=== PATIENT | male | born 1995 | race Caucasian/White ===

== ENCOUNTER 2017-01-23 16:00 | Inpatient (IN) | payer BC ==
--- NOTE | ~2017-01-23 | PN ---
Unit #: [id number] #: [id number] Patient: ABHISHEK HAMILTON [id number] [facility] [address] [place] [address] [id number] MR#: [id number] NAME: ABHISHEK HAMILTON ROOM: P212 Age: 21 Sex: M Admission Date: 01/23/2017 : 1995 Attending Physician: Dwayne Petty M.D. Admitting Physician: Dwayne Petty M.D. Primary Care Physician: Primary Care Physician Nataly MENDEZ PROGRESS NOTES DATE 01/25/2017 DISCUSSION Abhishek is a 21-year-old male seen on 01/25/2017. The patient interviewed, chart reviewed. Obtained information from nursing staff. The patient was compliant and cooperative, able to maintain safe behavior, tolerating medication fairly well. Vital signs stable 97.6, 67, 109/60. Complete review of systems unremarkable. MENTAL STATUS EXAMINATION General appearance, the patient dressed casually. Attention span and concentration fair. Oriented to time, place and person. Mood and affect labile. Speech monotone. Thought process concrete. The patient denied any thoughts of harming self or others. Recent and remote memory poor. Insight and judgement poor. DIAGNOSES Mood disorder NOS ASSESSMENT/PLAN Advise to continue with current medication and therapeutic protocol. If needed consider further adjustment of medication. Dictated by... Taz Martinez/lindsay TD: 01/26/2017 03:27 JOB #: [id number] ANDREA PROGRESS NOTES Page 1 of 1 X Dwayne Petty MD X PROGRESS NOTE
--- NOTE | ~2017-01-23 | HP ---
Unit #: [id number] #: [id number] Patient: ABHISHEK HAMILTON [id number] [facility] [address] [place] [address] [id number] MR#: [id number] NAME: ABHISHEK HAMILTON ROOM: P212 Age: 21 Sex: M Admission Date: 01/23/2017 : 1995 Attending Physician: Dwayne Petty M.D. Admitting Physician: Dwayne Petty M.D. Primary Care Physician: Primary Care Physician No HISTORY AND PHYSICAL HISTORY OF PRESENT ILLNESS Abhishek is a 21-year-old male admitted on 01/23/[address] [place] [address] for suicidal ideation and abuse of Adderall and cocaine. PAST MEDICAL HISTORY Type 1 diabetes diagnosed at 15 years old. PAST SURGICAL HISTORY Appendectomy. ALLERGIES No known drug allergies. SOCIAL HISTORY Smokes 1 pack of cigarettes daily. Occasional alcohol use and frequent use of marijuana, cocaine and prescription pills. He is currently single and living with his father. FAMILY HISTORY Noncontributory. REVIEW OF SYSTEMS CONSTITUTIONAL: No fever or chills. HEENT: Denies any sore throat, ear pain or runny nose. CARDIOVASCULAR: Denies chest pain, irregular heart rhythm or palpitations. CHEST: Denies shortness of breath or cough. No hemoptysis. GASTROINTESTINAL: Denies nausea, vomiting, diarrhea or chronic constipation. ENDOCRINE: Denies history of increased thirst or urination. No recent significant weight loss or gain. GENITOURINARY: Denies dysuria, frequency, or hematuria. SKIN: Denies any rashes. HEMATOLOGIC: Denies history of increased bleeding or bruising. MUSCULOSKELETAL: Denies any hot, swollen joints. No generalized muscle pain. NEUROLOGIC: Denies problems with vision or speech. No frequent, severe headaches. No numbness, tingling or weakness in any extremities. Denies loss of bladder or bowel control. CURRENT MEDICATIONS 1. Levemir. 2. Zoloft. 3. NovoLog. Unit #: [id number] #: [id number] Patient: ABHISHEK HAMILTON PHYSICAL EXAMINATION GENERAL: Alert, oriented, in no acute distress. VITAL SIGNS: Blood pressure 119/83, heart rate 69, respirations 18, temperature 97.7. HEIGHT: 6 feet 3. WEIGHT: 162 pounds. SKIN: Warm and dry without rash or lesion. HEENT: Normocephalic. TMs not viewed. Oral and nasal passages clear. Conjunctivae clear. PERRLA. EOMs intact. NECK: Supple without lymphadenopathy or thyromegaly. HEART: Regular rate and rhythm without murmur. LUNGS: Clear. ABDOMEN: Soft, nontender, without masses or hepatosplenomegaly. : Not done. EXTREMITIES: No evidence of cyanosis, clubbing or edema. Moves all without focal deficit. NEUROLOGICAL: Grossly within normal limits. Cranial Nerves: II: Visual bowden are intact. III, IV AND : Extraocular movements are intact. Pupils are equal, round and reactive to light. V: Facial sensation is grossly normal. VII: Facial movements and expression are normal. VIII: Auditory acuity grossly intact. IX, X: Uvula is midline. Phonation is normal. XI: Patient shrugs shoulders and turns head normally. XII: Tongue protrudes in the midline. Sensory and Motor Function: Sensory and motor sensation is grossly normal. Motor: moves all extremities well. Coordination: Gait is normal. Deep Tendon Reflexes: Intact. IMPRESSION 1. Psychiatric admission. 2. Type 1 diabetes. RECOMMENDATIONS PSYCHIATRIC: Per psychiatrist. MEDICAL: No contraindications to participate in facility's activities. MEDICAL PROGNOSIS Good. MEDICAL CONDITION Stable. Dictated by..Leyla Cates/louie TD: 01/24/2017 16:51 JOB #: [id number] Unit #: [id number] #: [id number] Patient: ABHISHEK HAMILTON HISTORY AND PHYSICAL Page 1 of 1 X ANA YOO APRN X HISTORY AND PHYSICAL
--- NOTE | ~2017-01-23 | CO ---
Unit #: [id number] #: [id number] Patient: ABHISHEK HAMILTON [id number] [place] [address] [id number] I MR#: [id number] NAME: ABHISHEK HAMILTON ROOM: [facility] Age: 21 Sex: M Admission Date: 01/23/2017 : 1995 Attending Physician: Dwayne Petty M.D. Primary Care Physician: Primary Care Physician No Consultation Date: 01/24/2017 CONSULTATION REPORT HISTORY OF PRESENT ILLNESS Abhishek reports that he is diagnosed with type 1 diabetes when he was 15 years old. Since he has been here, he has been taking his scheduled Toujeo, 4 units of Levemir every morning and 10 units of NovoLog with each meal. His blood sugar this morning was 406, this afternoon was 455. 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 Adan and has an appointment in a few weeks with him. He also has complaints of sutures in his left thumb after he cut himself with a stick and sutures were placed on 01/20/2017. He has no other complaints. PHYSICAL EXAMINATION CARDIAC: Regular rate and rhythm. No murmurs, gallops, or rubs. RESPIRATORY: Clear to auscultation bilaterally. SKIN: Please see photo of sutures in chart. ASSESSMENT AND PLAN 1. Left thumb sutures due to his type 1 diabetes. We will aid approximately 10 days before considering removal of the sutures. They are in a sensitive location that looks like it would open very easily without appropriate length of time. He was instructed to keep the area clean and dry with soap and water. No need for antibiotics at this time. There are no indications of infection. 2. Type 1 diabetes. We will continue with his current regimen of 24 units Levemir in the morning and 10 units of NovoLog with meals and we will add NovoLog 1 unit for every 50 units of blood sugars greater than 200. Dictated by... Lala Sierra A.P.R.N. for Taz Akbar/gil TD: 01/25/2017 01:32 JOB #: [id number] Unit #: [id number] #: [id number] Patient: ABHISHEK HAMILTON CONSULTATION REPORT Page 1 of 1 X LALA YOO APRN CONSULTATION REPORT
--- NOTE | ~2017-01-23 | PA ---
Unit #: [id number] #: [id number] Patient: ABHISHEK SCHRADER [id number] [facility] [address] [place] [address] [id number] MR#: [id number] NAME: ABHISHEK SCHRADER ROOM: P212 Age: 21 Sex: M Admission Date: 01/23/2017 : 1995 Date of Assessment: Attending Physician: Dwayne Petty M.D. Admitting Physician: Dwayne Petty M.D. Primary Care Physician: Primary Care Physician No PSYCHIATRIC ASSESSMENT INFORMANTS The patient reliability, fair informant and chart reliability, good. CHIEF COMPLAINT Depression. HISTORY OF PRESENT ILLNESS Mr. Abhishek Schrader is a 21-year-old male, presented with depression with suicidal ideation. The patient has a history of previous treatment at [facility] with suicide attempt. The patient has a good support from father. The patient is currently unemployed. Reported having suicidal ideation with a plan to jump off the bridge or cut his wrist. The patient reported history of overdosing in the past. Reported mood fluctuation, decreased energy, feeling of hopelessness and worthlessness, suicidal ideation, poor sleep, multiple stressors, and loss of job. The patient also reported smoking marijuana in the last few weeks. The patient reported going on a binge of abusing Adderall about 2 weeks ago. The patient has an estranged feeling, guarded, paranoid, mood lability, and suicidal ideation. Needing inpatient admission at this time for psychiatric stabilization. PAST PSYCHIATRIC HISTORY Remarkable for history of previous suicide attempt and inpatient treatment at [facility]. FAMILY HISTORY AND SOCIAL HISTORY The patient has a good support system. No history of abuse. No legal charges. MEDICAL HISTORY Remarkable for history of diabetes and injury to his thumb. MEDICATION HISTORY None. ALLERGIES No known drug allergies. SUBSTANCE ABUSE HISTORY The patient reported tobacco use, age of onset 13; alcohol, age of onset 15; marijuana, age of onset 13; crack cocaine, age of onset 19; LSD, age of onset 20; opioid, age of onset 18; amphetamine, age of onset 19; benzodiazepine, age of onset 15; and synthetic drugs, age of onset 17. Unit #: [id number] #: [id number] Patient: ABHISHEK SCHRADER The patient reported longest period of sobriety 2 months. Last period of sobriety in 2016. The patient reported history of blackouts. History of withdrawal. No history of any IV drug use. No history of HIV or hepatitis. REVIEW OF SYSTEMS HEENT: Eyes, clear. Ears, nose, mouth, and throat; clear. CARDIOVASCULAR: Unremarkable. RESPIRATORY: Unremarkable. GI: Unremarkable. : Unremarkable. SKIN: Unremarkable. LYMPH NODE: Unremarkable. NEUROLOGIC: Unremarkable. ENDOCRINE: Unremarkable. HEMATOLOGIC: Unremarkable. ALLERGIC/IMMUNOLOGIC: Unremarkable. MUSCULOSKELETAL: Muscle strength and tone, no atrophy or abnormal movement. Gait normal. MENTAL STATUS EXAMINATION CONSTITUTIONAL: Measurement of vital signs; temperature 98.0, heart rate 62, respiratory rate 18, and blood pressure 89/49. Height 6 feet 3 inches. GENERAL APPEARANCE: The patient dressed casually. The patient did not show any facial deformity. MUSCULOSKELETAL: Please see above. PSYCHIATRIC EXAMINATION Description of speech; regular rate, normal volume, normal articulation, and coherent. Description of thought process, goal directed. Description of association, intact. Description of abnormal psychotic thinking; the patient denied any hallucinations or delusions. Mood lability, but depression and substance abuse. Description of the patient's judgment: Concerning everyday activity, poor. Social situation, poor. Concerning psychiatric condition, poor. Complete mental status examination; oriented in time, place, and person. Recent and remote memory, fair. Attention span and concentration, fair. Language, able to name object and repeat phrases. Fund of knowledge, aware of current event and passive vocabulary intact. Mood and affect, sad and dysphoric. Insight and judgment, fair to poor. ASSETS AND LIABILITIES Assets, the patient is articulate and able to take care of his ADL. Liability, history of substance abuse and depression. ADMITTING DIAGNOSES Psychiatric: Bipolar mood disorder, recurrent severe, depressed, F31.9; amphetamine use disorder, moderate, F15.20; and cannabis abuse, moderate, F12.20. Secondary diagnosis: Deferred. Medical diagnoses: History of diabetes and injury to his thumb. Stressors: Psychosocial stressors. PSYCHIATRIC PLAN AND TREATMENT GOAL AND DISCHARGE PLAN Unit #: [id number] #: [id number] Patient: ABHISHEK SCHRADER 1. Advised to admit the patient on the inpatient unit. Provide safe, supportive, and structured environment. 2. Ordered labs; CBC, CMP, UA, and UDS. 3. Advised to resume home medication. The patient is on NovoLog, Levemir, and Zoloft. If needed, consider further adjustment of medication. 4. The patient to attend all the programing, group therapy, and individual therapy. If possible, family therapy and chemical dependency group. TREATMENT GOAL To attain euthymic mood, gain insight into his problem, and learn coping skills. DISCHARGE PLAN Plan to stabilize the patient and consider followup in outpatient program. ESTIMATED LENGTH OF STAY 3 to 5 days. Dictated by... Dwayne Petty M.D. SHARRI/gil TD: 01/24/2017 19:00 JOB #: [id number] PSYCHIATRIC ASSESSMENT Page 1 of 1 X Dwayne Petty MD X PSYCHIATRIC ASSESSMENT
--- NOTE | ~2017-01-23 | DS ---
Unit #: [id number] #: [id number] Patient: JOSELINE HAMILTON [id number] [facility] [address] [place] [address] [id number] MR#: [id number] NAME: JOSELINE HAMILTON ROOM: [facility] Age: 21 Sex: M Admission Date: 01/23/2017 : 1995 Discharge Date: 01/26/2017 Attending Physician: Dwayne Petty M.D. Primary Care Physician: Primary Care Physician No DISCHARGE SUMMARY REASON FOR ADMISSION History of Adderall abuse, cocaine abuse, suicidal ideation. DIAGNOSTIC STUDIES Unremarkable. HOSPITAL COURSE The patient was admitted to inpatient unit on January 23 and discharge on January 26, 2017. The patient was treated on the inpatient unit with detox protocol, detox monitoring, medication management, psychoeducation, chemical dependency group. The patient has showed improved and subsequent discharged with the plan to follow up in outpatient program. DISCHARGE DIAGNOSES Ducor I Bipolar mood disorder, recurrent, depressed, F31.9. Amphetamine use disorder, moderate, F15.20. Cannabis abuse, moderate, F12.20. Ducor II Deferred. Ducor III History of diabetes. Injury to thumb. Ducor IV Psychosocial stressors. Ducor V INSTRUCTIONS TO PATIENT The patient is to follow up in outpatient clinic and social group worker. DISCHARGE MEDICATIONS 1. Desyrel 50 mg at bedtime for sleep 2. Zoloft 150 mg at bedtime for depression 3. Vistaril 25 mg three times a day for anxiety CONDITION AT DISCHARGE Patient is pleasant and cooperative, denied any psychotic symptoms or any suicidal ideation. PROGNOSIS Guarded. DIET AND ACTIVITY Diet and activity as tolerated. Unit #: [id number] #: [id number] Patient: JOSELINE HAMILTON Dictated by... Taz Martinez/jesi TD: 01/27/2017 11:39 JOB #: [id number] DISCHARGE SUMMARY Page 1 of 1 X Dwayne Petty MD X DISCHARGE SUMMARY
--- NOTE | ~2017-01-23 | PN ---
Unit #: [id number] #: [id number] Patient: ABHISHEK HAMILTON [id number] [facility] [address] [place] [address] [id number] MR#: [id number] NAME: ABHISHEK HAMILTON ROOM: [facility] Age: 21 Sex: M Admission Date: 01/23/2017 : 1995 Attending Physician: Dwayne Petty M.D. Admitting Physician: Dwayne Petty M.D. Primary Care Physician: Primary Care Physician Nataly VEGA NOTES DATE OF SERVICE: 01/24/2017 DISCUSSION Abhishek is a 21-year-old male, seen on 01/24/2017. The patient interviewed, chart reviewed, and obtained information from nursing staff. The patient continues to be sad, dysphoric, flat affect, adjusting fairly well to unit rules, compliant with medication. The patient's vital signs; temperature 98.0, heart rate 62, and blood pressure 89/49. REVIEW OF SYSTEMS Complete review of systems unremarkable. MENTAL STATUS EXAMINATION General appearance, the patient dressed casually. Attention span and concentration, fair. Oriented in place and person. Mood and affect, sad and dysphoric. Speech, monotone. Thought process, concrete. The patient denied any thoughts of harming self or others, but guarded. Recent and remote memory, poor. Insight and judgment, poor. DIAGNOSIS Bipolar mood disorder, recurrent, depressed. ASSESSMENT AND PLAN Advised to continue with current medication and therapeutic protocol. If needed, consider further adjustment of medication. The patient's blood glucose this morning was 226. Dictated by... Taz Martinez/gil TD: 01/24/2017 14:49 JOB #: [id number] Unit #: [id number] #: [id number] Patient: ABHISHEK HAMILTON PROGRESS NOTES Page 1 of 1 X Dwayne Petty MD PROGRESS NOTE
[2017-01-24 12:54] LABS: URINE APPEARANCE CLOUDY; URINE BILIRUBIN NEG (NEG); URINE BLOOD 3+ (NEG); URINE COLOR YELLOW; URINE GLUCOSE 300 MG/DL (NORM); URINE KETONE NEG (NEG); URINE LEUKOCYTE ESTERASE NEG (NEG); URINE NITRATE NEG (NEG); URINE PROTEIN NEG (NEG); URINE UROBILINOGEN NORM (NORM)
[2017-01-24 13:07] LABS: AMPHETAMINE NEG (NEG); BARBITURATES NEG (NEG); BENZODIAZEPINES NEG (NEG); COCAINE NEG (NEG); MARIJUANA NEG (NEG); OPIATES NEG (NEG); TRICYCLIC ANTIDEPRESSANTS NEG (NEG); U METHADONE NEG (NEG)
[2017-01-24 13:14] LABS: URBCS1 AUWI 0-2 /[HPF] (0-2); URINE AMORPHOUS SEDIMENT AMORP URATES; URINE CRYSTALS CALCIUM OXALATE /[HPF]; UWBCS1 AUWI 0-2 (0-5)
[2017-01-24 14:18] LABS: BASOPHIL% 0.2 % (0-2.5); EOSINOPHIL% 0.3 % (0.0-7.0); HEMATOCRIT 45.5 % (38.0-50.0); HEMOGLOBIN 14.7 gm/dL (13.0-16.0); LYMPHOCYTE# 2.3 X10e3 (1.0-3.5); MEAN CORPUSCULAR HEMOGLOBIN 29.6 PG (28-34); MEAN CORPUSCULAR HGB CONC 32.2 g/dL (30-36); MEAN PLATELET VOLUME 9.9 FL (6.5-11.5); MONOCYTE# 0.7 X10e3 (0-1.0); MONOCYTE% 4.9 % (3.0-12.0); NEUTROPHIL# 10.4 X10e3 (1.5-7.1); NEUTROPHIL% 77.6 % (40-75); PLATELET COUNT 386 X10e3 (140-420); RED BLOOD COUNT 4.95 X10e (3.90-5.60); RED CELL DISTRIBUTION WIDTH 13.6 % (11.0-15.5); WHITE BLOOD COUNT 13.4 X10e3 (4.0-10.5)
[2017-01-24 14:31] LABS: DIFF IND NO
[2017-01-24 14:43] LABS: ALBUMIN SERUM 3.9 g/dL (3.5-5.0); BILIRUBIN,TOTAL 0.5 mg/dL (0.2-2.0); BUN/CREATININE RATIO 21.25; CALCIUM SERUM 10.2 mg/dL (8.4-10.2); CREATININE SERUM 0.8 mg/dL (0.6-1.4); GLOM FILT RATE Estimated 127.7 mL/min (>60); POTASSIUM 5.3 mmol/L (3.5-5.1); PROTEIN TOTAL SERUM 7.1 g/dL (6.0-8.3)
== END 2017-01-26 12:15 | DRG 885 ==
LOC: P2S 18:23
PROVIDERS: Psychiatry & Neurology Psychiatry
DX: F31.9 Bipolar disorder, unspecified (principal); F15.20 Other stimulant dependence, uncomplicated; R45.851 Suicidal ideations; F12.10 Cannabis abuse, uncomplicated; E10.9 Type 1 diabetes mellitus without complications; F31.30 Bipolar disorder, current episode depressed, mild or moderate severity, unspecified; F41.9 Anxiety disorder, unspecified; S69.90XD Unspecified injury of unspecified wrist, hand and finger(s), subsequent encounter
CPT/HCPCS: 80053; 80307; 81003; 82947; 83036; 85025